=== PATIENT | female | born 1950 | race Caucasian/White ===

== ENCOUNTER 2016-11-29 17:29 | Emergency (ER) | payer MEDICAID ==
[~2016-11-29] VITALS: Ht 152.4 cm; Wt 45.5 kg
[2016-11-29 17:32] VITALS: Ht 152.4 cm; Wt 45.5 kg
[2016-11-30] MEDS ORDERED: ALBUTEROL/IPRATROPIUM (NEB) 3 ML AMP HHN PRN (07:00)
[2016-11-30] MEDS ORDERED: NACL 0.9% 3 ML SYG IV SCH (07:00)
[2016-11-30] MEDS ORDERED: ONDANSETRON 4 MG INJ IV PRN (07:00)
[2016-11-30] MEDS ORDERED: morphine 2 MG INJ IV PRN (07:00)
[2016-11-30] MEDS ORDERED: ACETAMINOPHEN 325 MG TAB PO PRN (07:00)
[2016-11-30] MEDS ORDERED: ASPIRIN 81 MG TAB PO SCH (09:00)
[2016-11-30] MEDS ORDERED: HEPARIN 5,000 UNIT/0.5 ML VIAL SC SCH (09:00)
--- NOTE | 2016-11-30 17:54 | RADRPT ---
Echocardiogram Report Patient Name: CASIMIOR HENDERSON Gender: Female Date: 1950 Study Date: 30-Nov-2016 Shrimp Packer: [facility] Location: [facility] Ref. Physician: JAMES HAMM Quality: Good Procedures: Transthoracic echocardiogram with complete 2D, M-Mode, and doppler examination. Indications: Congestive Heart Failure. 2D/M Mode Doppler Measurement Value Normal Ranges Measurement Value Normal Ranges LVIDd 2D 4.0 3.5 - 5.6 cm AV Peak Delfino 1.6 m/sec LVIDs 2D 2.7 2.1 - 4.1 cm AV Peak PG 10.4 mmHg LVPWd 2D 1.3 0.6 - 1.1 cm LVOT Peak Delfino 1.2 m/sec IVSd 2D 1.3 0.6 - 1.1 cm LVOT Peak PG 5.8 mmHg AoR Diam 2D 2.3 2.0 - 3.7 cm MV E Peak Delfino 1.4 m/sec EDV 2D 71.8 cm3 MV A Peak Delfino 1.2 m/sec ESV 2D 20.2 cm3 MV E/A 1.2 MV Decel Time 151 msec MV Decel Troup 9 MV E/A 1.2 TR Peak Delfino 3.3 m/sec TR Peak PG 46.5 mmHg Findings Left Ventricle: Normal left ventricular systolic function. Normal left ventricular cavity size. Mild concentric left ventricular hypertrophy. Ejection fraction is visually estimated at 65 %. Tissue Doppler/Mitral Doppler indices are consistent with pseudonormalization with mildly elevated left atrial pressure (Stage II diastolic dysfunction). Right Ventricle: Normal right ventricular size. Normal right ventricular systolic function. Left Atrium: There is moderate enlargement of left atrium. Right Atrium: There is moderate enlargement of right atrium. Mitral Valve: Mild mitral leaflet calcification. Mild to moderate mitral valve regurgitation. Aortic Valve: No significant aortic stenosis or insufficiency. Aortic valve not well visualized. Tricuspid Valve: Tricuspid valve not well visualized. Estimated peak PA systolic pressure 72 mmHg. There is mild to moderate tricuspid regurgitation. Pericardium: Normal pericardium with no significant pericardial effusion. Aorta: Normal aortic root. IVC: Normal size and normal respiratory collapse consistent with normal right atrial pressure. Conclusions 1.Normal left ventricular systolic function. Normal left ventricular cavity size. Mild concentric left ventricular hypertrophy. Ejection fraction is visually estimated at 65 %. Tissue Doppler/Mitral Doppler indices are consistent with pseudonormalization with mildly elevated left atrial pressure (Stage II diastolic dysfunction). 2.Mild to moderate mitral valve regurgitation (may be underestimated). 3.Mild to moderate tricuspid regurgitation (may be underestimated). 4.Pulmonary hypertension with estimated peak PA systolic pressure 72 mmHg based on RA pressure of 3 mmHg. Electronically Signed By: Cleveland Olson 30-Nov-2016 17:53:37 -0700 Patient Name: CASIMIRO HENDERSON Study Date: 30-Nov-2016 [id number]
== END 2016-11-29 22:21 | disposition left against medical advice (07) ==
LOC: E/R 17:29
DX: Z53.21 Procedure and treatment not carried out due to patient leaving prior to being seen by health care provider (principal)
CPT/HCPCS: J2270; J2405

== ENCOUNTER 2016-11-30 01:41 | Inpatient (IN) | payer MEDICAID ==
[2016-11-30] VITALS (12 sets, daily range): BP systolic 129–165; BP diastolic 65–81; PULSE 67–84; RESP 18; TEMP 98.2; Ht 147.3 cm; Wt 43.9 kg
[~2016-11-30] VITALS: Ht 147.3 cm; Wt 43.9 kg
[2016-11-30] MEDS ORDERED: ONDANSETRON 4 MG INJ IV STA (02:03)
--- NOTE | 2016-11-30 03:21 | RADRPT ---
PROCEDURE: Chest. CLINICAL INDICATION: Chest pain. TECHNIQUE: Single frontal view of the chest was obtained. COMPARISON: None. FINDINGS: There is a right-sided Perma-Cath extending to the SVC/RA junction. The cardiac silhouette is enlar ged. The aortic arch is calcified. There is no focal consolidation, vascular congestion or pleural effusion. There is no pneumothorax. IMPRESSION: No evidence for active pulmonary disease. Cardiomegaly and aortic atherosclerosis. .Benito Renae MD, Date Time Electronically viewed and signed by .Benito Renae MD, on 11/30/2016 03:21 .T/
[2016-11-30 03:32] LABS: ADD SCAN DIFF NO
[2016-11-30 03:51] LABS: INR 1.02; PARTIAL THROMBOPLASTIN TIME 32.3 Sec (25.0-35.0); PROTIME 13.4 Sec (12.2-14.2)
[2016-11-30 03:57] LABS: ALBUMIN 3.8 g/dl (3.3-4.9)
[2016-11-30 03:58] LABS: POTASSIUM 4.8 mmol/L (3.5-5.1)
[2016-11-30 04:00] LABS: ALBUMIN/GLOBULIN RATIO 1.08; BILIRUBIN,INDIRECT 0.1 mg/dl (0-1.1); BILIRUBIN,TOTAL 0.1 mg/dl (0.2-1.3); CREATININE 8.4 mg/dl (0.44-1.00); TOTAL PROTEIN 7.3 g/dl (6.1-8.1)
[2016-11-30 04:01] LABS: CALCIUM 8.8 mg/dl (8.4-10.2)
[2016-11-30 04:04] LABS: BASOPHIL # 0.1 10^3/ul (0.0-0.1); BASOPHILS % 0.7 % (0.0-2.0); EOSINOPHILS # 0.2 10^3/ul (0.0-0.5); EOSINOPHILS % 1.6 % (0.0-7.0); HEMATOCRIT 25.1 % (37.0-47.0); HEMOGLOBIN 8.4 g/dl (12.0-16.0); LYMPHOCYTES # 1.4 10^3/ul (0.8-2.9); LYMPHOCYTES % 10.6 % (15.0-51.0); MEAN CORPUSCULAR HEMOGLOBIN 29.6 pg (29.0-33.0); MEAN CORPUSCULAR HGB CONC 33.5 g/dl (32.0-37.0); MEAN CORPUSCULAR VOLUME 88.4 fl (82.0-101.0); MEAN PLATELET VOLUME 10.5 fl (7.4-10.4); MONOCYTE # 0.7 10^3/ul (0.3-0.9); MONOCYTES % 5.3 % (0.0-11.0); NEUTROPHIL # 10.4 10^3/ul (1.6-7.5); NEUTROPHILS % 81.3 % (39.0-77.0); PLATELET COUNT 337 10^3/UL (140-415); RED BLOOD COUNT 2.84 10^6/ul (4.20-5.40); RED CELL DISTRIBUTION WIDTH 14.8 % (11.5-14.5); WHITE BLOOD COUNT 12.8 10^3/ul (4.8-10.8)
[2016-11-30 04:13] LABS: TROPONIN-I 0.031 ng/ml (0.00-0.12)
[2016-11-30] MEDS: morphine 4 MG/ML VIAL IV PRN (09:49)
[2016-11-30] MEDS: ONDANSETRON 4 MG INJ IV PRN ×2 (09:50→17:35)
[2016-11-30] MEDS: hydrALAzine 20 MG INJ IV SCH ×3 (09:52→17:35)
--- NOTE | 2016-11-30 11:39 | HP ---
Date/Time of Note Date/Time of Note DATE: 11/30/16 TIME: 11:32 Assessment/Plan VTE Prophylaxis VTE Prophylaxis Intervention: SCD's Lines/Catheters IV Catheter Type (from Nrsg): Saline Lock Assessment/Plan Assessment/Plan IMPRESSION 1. Shortness of Breath 2. ESRD on HD 3. Hypertensive Urgency 4. Epigastric abd pain with vomiting PLAN - will obtain KUB to eval for etiology of abd pain and vomiting. additional imaging as needed - will provide anti-emetics - place on IV anti-hypertensive with adjustment as needed - Nephrology consult - will also obtain 2d-echo to w/u shortness of breath HPI/ROS Admit Date/Time Admit Date/Time Hx of Present Illness Patient is a 66 yo female with hx of ESRD on HD, HTN, DM who presented to ER c/ o SOB and abd pain. Symptom has been going on since yesterday. Abd pain is localized in epigastric area with associated NBNB vomiting. In ER, Na, 133, WBC 12.8 BUN 64, Cr 8.4, BNP 34,000. SBP was documented to be as high as 192/75. CXR showed Cardiomegaly PMH/Family/Social Social History Smoking Status: Never smoker Exam/Review of Systems Vital Signs Vitals Vital Signs Date Time Temp Pulse Resp B/P Pulse Ox O2 Delivery O2 Flow Rate FiO2 11/30/16 10:23 98.2 72 18 149/62 99 Room Air Exam Constitutional: alert, oriented, well developed Eyes: EOMI, PERRL Neck: non-tender, supple Respiratory: clear to auscultation, normal air movement Cardiovascular: nl pulses, regular rate and rhythm Gastrointestinal: soft, tender Extremities: normal pulses Labs Result Diagram: 11/30/16 0230 11/30/16 0230 Medications Medications Current Medications Ondansetron HCl (Zofran Inj) 4 mg Q4H PRN IV NAUSEA AND/OR VOMITING Last administered on 11/30/16 09:50; Admin Dose 4 MG; Start 11/30/16 at 09:30 Hydralazine HCl (Apresoline) 10 mg Q6 IV Last administered on 11/30/16 09:52; Admin Dose 10 MG; Start 11/30/16 at 09:30 Morphine Sulfate (morphine) 3 mg Q4H PRN IV PAIN LEVEL 4-6 Last administered on 11/30/16 09:49; Admin Dose 3 MG; Start 11/30/16 at 09:30 Metoclopramide HCl (Reglan) 10 mg Q6 PRN IV nausea and vomiting; Start at 11:30; Status UNV JAMES HAMM MD Nov 30, 2016 11:38
--- NOTE | 2016-11-30 14:11 | RADRPT ---
PROCEDURE: XR Abdomen 1 View. CLINICAL INDICATION: Abdominal pain and vomiting TECHNIQUE: AP abdomen x-ray. COMPARISON: None. FINDINGS: Large amount of formed stool is seen throughout the colon. No dilated loops of small bowel are obse rved. No organomegaly is identified. A few phleboliths are noted in the pelvis. Degenerative change s are seen in the hips and spine. IMPRESSION: Large amount of formed stool throughout the colon suggesting constipation. If further characterization of the abdomen is needed CT should be considered. RPTAT: AA .Alcon Estes MD, MD Date Time Electronically viewed and signed by .Alcon Estes MD, on 11/30/2016 14:11 .P/
--- NOTE | 2016-11-30 18:16 | CONS ---
DATE OF ADMISSION: 11/30/2016 DATE OF CONSULTATION: 11/30/2016 REASON FOR CONSULTATION: End-stage renal disease, volume overload. REQUESTING PHYSICIAN: Dr. Napoleon Villareal HISTORY OF PRESENT ILLNESS: This is a 66-year-old female with a past medical history of end-stage r enal disease, on Tuesday, Tuesday, Tuesday with access of a right chest PermCath. The patient's las t hemodialysis was last Tuesday. History of hypertension, diabetes, who presents to the emergency ro om with complaints of shortness of breath, abdominal pain. The patient said her symptoms have been ongoing for the past 24 hours. As a result, without improvement in her symptoms, she came to the em ergency room. Upon arrival, the patient had a chest x-ray which showed findings of cardiomegaly, no active pulmonary disease. The patient had abdominal x-rays which showed a large amount of formed s tool. In the emergency room, the patient was noted to be in hypertensive urgency with systolic pres sures greater than 170. The patient was given hydralazine IV x1. The patient was also noted to be short of breath. There have been no reports of hemoptysis, hematemesis or hematochezia. PAST MEDICAL HISTORY: As stated above, history of hypertension, end-stage renal disease, dyslipidem ia, diabetes. PAST SURGICAL HISTORY: Status post PermCath placement. ALLERGIES: NO KNOWN DRUG ALLERGIES. FAMILY HISTORY: Noncontributory. SOCIAL HISTORY: Does not drink, smoke or do drugs. MEDICATIONS: The patient's medications have been reviewed. REVIEW OF SYSTEMS: A 14-point review of systems was conducted. Pertinent positives stated in the H PI, otherwise negative. PHYSICAL EXAMINATION: VITAL SIGNS: Blood pressure 151/60, respirations 18, pulse 69, temperature 98.2. HEENT: Head is normocephalic. NECK: Supple. HEART: Regular rate. LUNGS: Show diminished breath sounds at the bases. ABDOMEN: Soft, nontender to palpation. No rebound or guarding. EXTREMITIES: Negative for clubbing, cyanosis. No edema. DERMATOLOGIC: No rashes. MUSCULOSKELETAL: No joint effusions. NEUROLOGIC: No change in exam. LABORATORY DATA: Shows a sodium 133, potassium 4.8, chloride 94, BUN 64, creatinine 8.40. White co unt 12.8, hemoglobin 8.4, hematocrit 25.1, platelet count 337. IMAGING STUDIES: As stated in the HPI. ASSESSMENT AND PLAN: This is a 66-year-old female who presents with: 1. End-stage renal disease. The patient is on dialysis Tuesday, Tuesday, Tuesday with access of a right chest PermCath. The patient's last hemodialysis was Tuesday. Plan is for urgent hemodialysis today. We will dialyze for 3 hours, 3 K bath, calcium 2.5, ultrafiltrate as tolerated. Also, antic ipate dialysis tomorrow for solute clearance and volume removal. 2. Hypertensive urgency in part due to increased intravascular volume. Plan is for dialysis for ul trafiltration. We will continue current blood pressure regimen. 3. Hyponatremia secondary to end-stage renal disease. The patient will be dialyzed on a 140 sodium bath. 4. Volume overload. As stated above, the patient will have ultrafiltration dialysis. We will mini aicha IV fluids, her total fluids no more than 1 to 2 liters. 5. Anemia of chronic kidney disease. We will monitor hemoglobin and hematocrit levels. We will gi ve Epogen. 6. Mineral bone disorder. Monitor calcium and phosphorus levels. Defer phosphate binders at this time. 7. Abdominal pain, nausea, vomiting. Etiology is unclear. The patient's KUB shows no acute findin gs. May consider CT scan of abdomen and pelvis. We will monitor closely. Thank you, Dr. Villareal, for this interesting consultation. It will be a pleasure to follow the patient with you throughout the hospital course. Dictated By: STEFFI BRIGGS/KLAUDIA Conf#: [id number] DID#: [id number]
[2016-12-01] VITALS (21 sets, daily range): BP systolic 96–166; BP diastolic 54–72; PULSE 67–79; RESP 16–18
[2016-12-01] MEDS: hydrALAzine 20 MG INJ IV SCH ×5 (06:30→23:22)
[2016-12-01] MEDS: ONDANSETRON 4 MG INJ IV PRN ×4 (06:35→23:22)
[2016-12-01 08:06] LABS: IRON 92 ug/dl (35-150)
[2016-12-01 08:15] LABS: TOTAL IRON BINDING CAPACITY 221 ug/dl (241-421)
--- NOTE | 2016-12-01 10:25 | PN ---
DATE: 12/01/2016 SUBJECTIVE: The patient had hemodialysis yesterday which was complicated. I spoke with dialysis marietta se 2 to 3 times adjusting dialysis flow rates and blood flow rates, no other events noted. The denis ent is feeling improved this morning less short of breath. OBJECTIVE: VITAL SIGNS: Blood pressure is 150/67, respiration 17, pulse 72, temperature 98.2. HEENT: Head is normocephalic. NECK: Supple. HEART: Regular rate. LUNGS: Show diminished breath sounds at the base. ABDOMEN: Soft, nontender to palpation without rebound or guarding. EXTREMITIES: Negative for clubbing, cyanosis. No edema. DERMATOLOGIC: No rashes. MUSCULOSKELETAL: No joint effusions. NEUROLOGIC: No change in exam. MEDICATIONS: The patient's medications have been reviewed. LABORATORY DATA: Has been reviewed. No new labs. ASSESSMENT AND PLAN: 1. End-stage renal disease. The patient had hemodialysis yesterday. Plan again for dialysis today for 3 hours, 3 K bath, calcium 2.5. 2. Hypertensive urgency secondary to increased intravascular volume. The patient clinically improv ing. Continue ultrafiltration dialysis. Continue current blood pressure regimen. 3. Hyponatremia secondary to end-stage renal disease. Continue dialysis 140 sodium bath. 4. Volume overload. The patient has dialyzed 3 liters. another 3 liters of ultrafiltration today. 5. Anemia of chronic disease. Continue to monitor H and H levels. Continue Epogen. 6. Mineral bone disorder. Continue to monitor calcium and phosphorus levels. 7. Abdominal pain, nausea, vomiting, improving. Continue to monitor. Dictated By: STEFFI BRIGGS/KLAUDIA Conf#: [id number] DID#: [id number]
[2016-12-01] MEDS: morphine 4 MG/ML VIAL IV PRN (12:01)
[2016-12-01] MEDS ORDERED: NA PHOSPHATE/BIPHOS 133 ML ENEMA PR ONE (14:30)
[2016-12-01] MEDS ORDERED: DEXTROSE 50% 50 ML SYRINGE IV PRN ×2 (15:00)
[2016-12-01] MEDS ORDERED: GLUCAGON 1 MG INJ IM PRN (15:00)
[2016-12-01] MEDS ORDERED: GLUCOSE GEL 15 GRAM TUBE PO PRN ×2 (15:00)
[2016-12-01] MEDS ORDERED: GLUCOSE GEL 15 GRAM TUBE BUCCAL PRN (15:00)
[2016-12-01 16:46] LABS: CHOL/HDL RATIO 2.9 RATIO
[2016-12-01] MEDS: FAMOTIDINE 20 MG TAB PO SCH (17:52)
[2016-12-01] MEDS: DOCUSATE SODIUM 100 MG CAP PO SCH ×2 (17:52→20:12)
[2016-12-01] MEDS: HEPARIN 5,000 UNIT/0.5 ML VIAL SC SCH ×2 (18:06→20:14)
[2016-12-01] MEDS: INSULIN ASPART [NOVOLOG] 3 ML PEN SC SCH ×2 (18:11→20:13)
[2016-12-01 19:54] LABS: ADD SCAN DIFF NO
[2016-12-01 19:57] LABS: BASOPHIL # 0.1 10^3/ul (0.0-0.1); BASOPHILS % 1.1 % (0.0-2.0); EOSINOPHILS # 0.1 10^3/ul (0.0-0.5); EOSINOPHILS % 0.8 % (0.0-7.0); HEMATOCRIT 27.8 % (37.0-47.0); HEMOGLOBIN 9.3 g/dl (12.0-16.0); LYMPHOCYTES # 1.1 10^3/ul (0.8-2.9); LYMPHOCYTES % 14.7 % (15.0-51.0); MEAN CORPUSCULAR HEMOGLOBIN 30.3 pg (29.0-33.0); MEAN CORPUSCULAR HGB CONC 33.5 g/dl (32.0-37.0); MEAN CORPUSCULAR VOLUME 90.6 fl (82.0-101.0); MEAN PLATELET VOLUME 9.8 fl (7.4-10.4); MONOCYTE # 0.5 10^3/ul (0.3-0.9); NEUTROPHIL # 5.8 10^3/ul (1.6-7.5); NEUTROPHILS % 75.9 % (39.0-77.0); PLATELET COUNT 343 10^3/UL (140-415); RED BLOOD COUNT 3.07 10^6/ul (4.20-5.40); RED CELL DISTRIBUTION WIDTH 14.9 % (11.5-14.5); WHITE BLOOD COUNT 7.6 10^3/ul (4.8-10.8)
[2016-12-01 20:16] LABS: CALCIUM 8.4 mg/dl (8.4-10.2); CREATININE 2.73 mg/dl (0.44-1.00); POTASSIUM 3.9 mmol/L (3.5-5.1)
[2016-12-02] VITALS (13 sets, daily range): BP systolic 139–174; BP diastolic 61–79; PULSE 66–75; RESP 16–18
[2016-12-02] MEDS: ACCU-CHEK XX SCH (01:44)
[2016-12-02] MEDS: morphine 2 MG INJ IV PRN ×2 (05:04→19:51)
[2016-12-02] MEDS: METOCLOPRAMIDE 10 MG INJ IV PRN ×2 (05:05→19:52)
[2016-12-02] MEDS: hydrALAzine 20 MG INJ IV SCH ×3 (05:05→17:26)
[2016-12-02] MEDS: INSULIN ASPART [NOVOLOG] 3 ML PEN SC SCH ×4 (08:00→20:03)
[2016-12-02] MEDS: DOCUSATE SODIUM 100 MG CAP PO SCH ×2 (08:24→19:52)
[2016-12-02] MEDS: FAMOTIDINE 20 MG TAB PO SCH (08:24)
[2016-12-02] MEDS: HEPARIN 5,000 UNIT/0.5 ML VIAL SC SCH ×2 (08:24→19:53)
--- NOTE | 2016-12-02 08:54 | PN ---
DATE: 12/01/2016 SUBJECTIVE: The patient received dialysis yesterday and getting it today. Had some mild nausea, vo miting symptoms this morning, otherwise no acute events overnight. OBJECTIVE: VITAL SIGNS: Stable. Blood pressure systolic is 151 to 166 over 67 to 72 diastolic. GENERAL: The patient lying in bed, answering questions appropriately. No acute distress. HEENT: Pupils equal, round, reactive to light. Extraocular muscles intact. NECK: Supple, no thyromegaly. LUNGS: Clear to auscultation bilaterally. CARDIOVASCULAR: S1, S2 heard. No rubs or gallops. ABDOMEN: Soft, nontender, nondistended. Normal bowel sounds. No rebound or guarding. MUSCULOSKELETAL: No lower extremity edema bilaterally. NEUROLOGIC: No focal deficits. LABORATORIES: There is no new CBC or basic metabolic panel from this morning. The KUB showed large amount of formed stool throughout the colon suggesting constipation. Chest x-ray: No evidence of active pulmonary disease. ASSESSMENT AND PLAN: This is a 66-year-old female with history of end-stage renal disease on dialys is, hypertension, diabetes, who presented with shortness of breath and abdominal pain. 1. Shortness of breath secondary most likely fluid overload. The patient received dialysis yesterd ay. She will get dialysis again today. Follow up renal recommendations. Follow up labs in the [facility]. Follow up echocardiogram results as well. 2. Hypertensive urgency, possibly secondary to increased intravascular volume. The blood pressure is in the high normal range now. Continue current blood pressure medicines. Dialysis per renal rec ommendations. 3. Type 2 diabetes. Follow up A1c levels and put her on sliding scale insulin. 4. History of hypertension. See #2. 5. Epigastric abdominal pain. Again most likely secondary to #1. There is also a large amount of stool/constipation, so will put her on Colace and also consider Fleet enema as well. 6. Gastrointestinal prophylaxis. Add PPI. 7. Deep venous thrombosis prophylaxis. Heparin subQ. Dictated By: BEATRICE ADAN/KLAUDIA Conf#: [id number] DID#: [id number]
[2016-12-02] MEDS ORDERED: EPOETIN 10000 UNITS/1 ML INJ (ESRD) SC SCH (10:30)
--- NOTE | 2016-12-02 10:40 | PN ---
DATE: 12/02/2016 SUBJECTIVE: The patient is stable, no acute events overnight. The patient had hemodialysis yesterd ay, tolerated it well. OBJECTIVE: VITAL SIGNS: Blood pressure is 157/70, respirations 18, pulse 72, temperature 98.1. HEENT: Head is normocephalic. NECK: Supple. HEART: Regular rate. LUNGS: Show diminished breath sounds at the bases. ABDOMEN: Soft, nontender to palpation. No rebound or guarding. EXTREMITIES: Negative for clubbing, cyanosis. No edema. DERMATOLOGIC: No rashes. MUSCULOSKELETAL: No joint effusions. NEUROLOGIC: No change. MEDICATIONS: The patient's medications have been reviewed. LABORATORY DATA: Shows a sodium 134, potassium 3.9, BUN 10, creatinine 2.73. White count 7.6, hemo globin 9.3, hematocrit 27.8, platelet count is 343. ASSESSMENT AND PLAN: 1. End-stage renal disease. The patient is on dialysis Tuesday, Tuesday, Tuesday. Plan for dialys is tomorrow for 3 hours, 3 K bath, calcium 2.5. 2. Hypertensive urgency in part due to increased intravascular volume. The patient clinically impr oving. Continue ultrafiltration dialysis. Continue current blood pressure regimen. 3. Hyponatremia, improved. Continue hemodialysis on a 140 sodium bath. 4. Volume overload, improving. Continue ultrafiltration dialysis. 5. Anemia. Continue to monitor hemoglobin and hematocrit levels. We will give Epogen as needed. 6. Mineral bone disorder. Continue to monitor calcium and phosphorus levels. 7. Diabetes. Continue Accu-Cheks and insulin sliding scale. 8. Abdominal pain secondary to constipation. Continue current bowel regimen. Dictated By: STEFFI BRIGGS/KLAUDIA Conf#: [id number] DID#: [id number]
[2016-12-02] MEDS: ONDANSETRON 4 MG INJ IV PRN ×2 (10:43→16:41)
--- NOTE | 2016-12-02 13:16 | CONS ---
DATE OF ADMISSION: 12/01/2016 DATE OF CONSULTATION: 12/02/2016 PALLIATIVE CARE CONSULTATION HISTORY OF PRESENT ILLNESS: This is a palliative consultation on this 66-year-old female who was ad mitted to [facility] with increased shortness of breath and chest pain. She states that she has back pain and chest pain which has been ongoing. It is chronic. Denies any extreme s hortness of breath associated with onset of the pain. Character of the pain is a gnawing type of di scomfort. It does radiate into her back. There is no past history of opioid use or abuse. The pain has been alleviated here with p.r.n. doses of morphine at 2 mg IV q.4h. There is no radiation asso ciated with the pain except for as per above. The patient does not have a history of chronic pain s yndrome prior to this hospitalization or prior to the current complaints. No distant past medical h istory of chronic pain disorders. There is no recent history of surgeries associated with the onset of her pain. Denies any extreme shortness breath, hemoptysis, dizziness, diplopia or disorientatio n. She states that she started hemodialysis approximately 2 months ago and she is going 3 times per week. In the emergency room the patient was found to be in hypertensive urgency also, was treated at that time and admitted, started off on antihypertensive medications. Nephrology consultation was called. Workup is currently underway for the underlying etiology of this pleuritic type of chest d iscomfort. The patient rates her pain as 4/10 in the epigastrium and upper back. The pain does not change upon movement. Nothing exacerbates the pain, including coughing or tactile stimulation. The frequency of her pain is continuous. There are no precipitating factors. The patient was not takin g any pain control medications as an outpatient. It does not affect her sleeping or appetite. MEDICATIONS: Please refer to reconciliation sheets. ALLERGIES: NO KNOWN DRUG ALLERGIES. MAJOR MEDICAL PROBLEMS IN THE PAST: As per history of present illness and a history of hypertension , type 2 diabetes, end-stage renal disease, on hemodialysis. The patient was found to have profound fluid and electrolyte abnormalities on admission, with a BNP of 34,000 also. SOCIAL HISTORY: Nonsmoker, nondrinker, nondrug-user. FAMILY HISTORY: Noncontributory. She states that she has 6 children who are all alive and in good health. Mother and father are alive, in good health also. REVIEW OF SYSTEMS: A 12-point review of systems was unremarkable, except as per history of present illness. PHYSICAL EXAMINATION: GENERAL: Shows a well-nourished, well-developed female, who appears older than her stated age. VITAL SIGNS: Blood pressure 147/67, pulse 70 and regular, respirations of 18, temperature 97.9 degr ees, 97% saturation on room air. HEENT: She is normocephalic and atraumatic. Anicteric, acyanotic on examination. CHEST: Shows bilateral distant breath sounds throughout both lung betancur. COR: S1, S2, without S3, S4, murmur, gallop, rub. Normal rate, normal rhythm on examination. NEUROLOGIC EXAMINATION: She is oriented x3. Cranial nerves II through XII are grossly intact. Mot or and sensory findings are grossly within normal limits. LABORATORY: White blood cell count of 7.6, hemoglobin 9.3, hematocrit 27.8, MCV of 90.6, platelet c ount of 343,000. Chemistries: Serum sodium 134, potassium 3.9, chloride 99, bicarbonate 28, BUN of 10, creatinine 2.73, blood sugar of 189. IMAGING STUDIES: Chest x-ray done on 11/30/2016, no evidence of active pulmonary disease. Cardiome jl with aortic arteriosclerosis. ASSESSMENT AND PLAN: This is a 66-year-old lady with 2 medical problems: 1. Pain syndrome, which does sound pleuritic in origin. Options are to treat it with nonsteroidal anti-inflammatory medications, which I suggest with her underlying end-stage renal disease. Hopeful ly this will just burnout. I do not recommend increasing her current pain control medications, but because of her underlying renal disease, I will stop the morphine and switch her over to Dilaudid at this time, as morphine is metabolized through the kidneys Dilaudid less though. 2. The second issue to address with the patient is that she has end-stage renal disease, multiple c omorbid medical problems were increasing complications associated with the above, including , r ecurrent hospitalizations for congestive heart failure, chest discomfort, arteriosclerotic circulato ry vascular related problems. I will address a POLST form with the patient gingerly. There are no other family members who make decisions on her behalf. Issues with palliative care would involve ps ychosocial issues in this lady which I do not believe she is making her own decisions and is sound of mind. Palliative care performance scale is 60%. Goals have not been discussed with the pa ashwini yet. I will try and establish some level of trust first. Pain management issue has been refe rred to ready family issues and decision makers are definitely patient goals of care will be to cont inue with higher level of care and, once again, to discuss ongoing level of care, which I believe is appropriate at the time to do all, especially with this lady who is only 66 years old, but it is ap propriate to discuss a POLST form with her and possibly an advance directive also to be determined, depending upon how the patient responds to my eye opening of the conversation about level of care. We will follow closely while in-house. Dictated By: FAZAL COLLINS MD, LP/KLAUDIA Conf#: [id number] DID#: [id number]
--- NOTE | 2016-12-02 14:00 | PN ---
Date/Time of Note Date/Time of Note DATE: 12/02/16 TIME: 13:57 Assessment/Plan VTE Prophylaxis VTE Prophylaxis Intervention: heparin Lines/Catheters IV C[facility] Type (from [facility] Saline Lock Urinary Cath still in place: No Assessment/Plan Chief Complaint/Hosp Course ASSESSMENT AND PLAN: 66-year-old female with history of end-stage renal disease on dialysis, hypertension, diabetes, who presented with shortness of breath and abdominal pain. 1. Shortness of breath - secondary most likely fluid overload. The patient received dialysis yesterday. - for dialysis tomorrow. Follow up renal recommendations. - Follow up labs in the morning. Follow up echocardiogram results as well. 2. Hypertensive urgency- possibly secondary to increased intravascular volume. The blood pressure is improved now. - Continue current blood pressure medicines. - Dialysis per renal recommendations. 3. Type 2 diabetes. Follow up A1c levels, sliding scale insulin. 4. History of hypertension. See #2. 5. Epigastric abdominal pain. Again most likely secondary to #1. There is also a large amount of stool/constipation, so will put her on Colace and also consider Fleet enema as well. 6. Gastrointestinal prophylaxis. Add PPI. 7. Deep venous thrombosis prophylaxis. Heparin subQ. 8. abd pain - f/u palliative care team rec's. Problems: Subjective 24 Hr Interval Summary Free Text/Dictation Pt had HD yesterday, seen by renal and palliative team as well. Exam/Review of Systems Vital Signs Vitals Vital Signs Date Time Temp Pulse Resp B/P Pulse Ox O2 Delivery O2 Flow Rate FiO2 12/02/16 13:54 2.0 12/02/16 12:09 68 12/02/16 11:20 97.9 18 147/67 97 11/30/16 20:15 Room Air Intake and Output 12/01/16 12/01/16 12/02/16 15:00 23:00 07:00 Intake Total 500 ml Output Total 3400 ml Balance -2900 ml Exam GENERAL: The patient lying in bed, answering questions appropriately. No acute distress. HEENT: Pupils equal, round, reactive to light. Extraocular muscles intact. NECK: Supple, no thyromegaly. LUNGS: Clear to auscultation bilaterally. CARDIOVASCULAR: S1, S2 heard. No rubs or gallops. ABDOMEN: Soft, nontender, nondistended. Normal bowel sounds. No rebound or guarding. MUSCULOSKELETAL: No lower extremity edema bilaterally. NEUROLOGIC: No focal deficits. Results Result Diagram: 12/01/16193212/01/161932 Results 24 hrs Laboratory Tests Test 12/01/16 15:22 12/01/16 18:02 12/01/16 19:33 12/01/16 20:11 Hemoglobin A1c 6.4 H Triglycerides Level 125 Cholesterol Level 160 LDL Cholesterol, Calculated 80 HDL Cholesterol 55 Cholesterol/HDL Ratio 2.9 Bedside Glucose 170 199 White Blood Count 7.6 # Red Blood Count 3.07 L Hemoglobin 9.3 L Hematocrit 27.8 L Mean Corpuscular Volume 90.6 Mean Corpuscular Hemoglobin 30.3 Mean Corpuscular Hemoglobin Concent 33.5 Red Cell Distribution Width 14.9 H Platelet Count 343 Mean Platelet Volume 9.8 Neutrophils % 75.9 Lymphocytes % 14.7 L Monocytes % 7.0 Eosinophils % 0.8 Basophils % 1.1 Nucleated Red Blood Cells % 0.0 Neutrophils # 5.8 Lymphocytes # 1.1 Monocytes # 0.5 Eosinophils # 0.1 Basophils # 0.1 Nucleated Red Blood Cells # 0.0 Sodium Level 134 L Potassium Level 3.9 Chloride Level 99 Carbon Dioxide Level 28 Anion Gap 11 # Blood Urea Nitrogen 10 # Creatinine 2.73 #H Glucose Level 189 Calcium Level 8.4 Test 12/02/16 08:19 12/02/16 12:32 Bedside Glucose 114 193 Medications Medications Current Medications Ondansetron HCl (Zofran Inj) 4 mg Q4H PRN IV NAUSEA AND/OR VOMITING Last administered on 12/02/16 10:43; Admin Dose 4 MG; Start 11/30/16 at 09:30 Hydralazine HCl (Apresoline) 10 mg Q6 IV Last administered on 12/02/16 05:05; Admin Dose 10 MG; Start 11/30/16 at 09:30 Metoclopramide HCl (Reglan) 5 mg Q6 PRN IV nausea and vomiting Last administered on 12/02/16 05:05; Admin Dose 5 MG; Start 11/30/16 at 11:30 Docusate Sodium (Colace) 200 mg BID PO Last administered on 12/02/16 08:24; Admin Dose 200 MG; Start 12/01/16 at 14:30 Famotidine (Pepcid) 20 mg DAILY PO Last administered on 12/02/16 08:24; Admin Dose 20 MG; Start 12/01/16 at 14:30 Heparin Sodium (Porcine) (Heparin (5000 Units/0.5 ml)) 5,000 unit BID SC Last administered on 12/01/16 20:14; Admin Dose 5,000 UNIT; Start 12/01/16 at 14:30 Acetaminophen (Tylenol Tab) 650 mg Q6H PRN PO PAIN AND OR ELEVATED TEMP; Start 12/01/16 at 14:30 Morphine Sulfate (morphine) 2 mg Q4H PRN IV PAIN LEVEL 4-6 Last administered on 12/02/16 05:04; Admin Dose 2 MG; Start 12/01/16 at 17:30 Diagnostic Test (Pha) (Accu-Chek) 1 ea 02 XX ; Start 12/02/16 at 02:00 Miscellaneous Information 1 ea NOTE XX ; Start 12/01/16 at 15:00 Glucose (Glutose) 15 gm Q15M PRN PO DECREASED GLUCOSE; Start 12/01/16 at 15:00 Glucose (Glutose) 22.5 gm Q15M PRN PO DECREASED GLUCOSE; Start 12/01/16 at 15: 00 Dextrose (D50w Syringe) 25 ml Q15M PRN IV DECREASED GLUCOSE; Start 12/01/16 at 15:00 Dextrose (D50w Syringe) 50 ml Q15M PRN IV DECREASED GLUCOSE; Start 12/01/16 at 15:00 Glucagon (Glucagen) 1 mg Q15M PRN IM DECREASED GLUCOSE; Start 12/01/16 at 15:00 Glucose (Glutose) 15 gm Q15M PRN BUCCAL DECREASED GLUCOSE; Start 12/01/16 at 15 :00 BEATRICE VALERIO Dec 02, 2016 14:00
[2016-12-02 14:16] LABS: ADD SCAN DIFF NO; BASOPHIL # 0.1 10^3/ul (0.0-0.1); BASOPHILS % 1.3 % (0.0-2.0); EOSINOPHILS # 0.1 10^3/ul (0.0-0.5); EOSINOPHILS % 0.7 % (0.0-7.0); HEMATOCRIT 30.6 % (37.0-47.0); HEMOGLOBIN 10.4 g/dl (12.0-16.0); LYMPHOCYTES # 1.7 10^3/ul (0.8-2.9); LYMPHOCYTES % 22.6 % (15.0-51.0); MEAN CORPUSCULAR HEMOGLOBIN 30.5 pg (29.0-33.0); MEAN CORPUSCULAR VOLUME 89.7 fl (82.0-101.0); MEAN PLATELET VOLUME 10.1 fl (7.4-10.4); MONOCYTE # 0.4 10^3/ul (0.3-0.9); MONOCYTES % 5.7 % (0.0-11.0); NEUTROPHIL # 5.2 10^3/ul (1.6-7.5); PLATELET COUNT 394 10^3/UL (140-415); RED BLOOD COUNT 3.41 10^6/ul (4.20-5.40); RED CELL DISTRIBUTION WIDTH 14.6 % (11.5-14.5); WHITE BLOOD COUNT 7.6 10^3/ul (4.8-10.8)
[2016-12-02 14:24] LABS: POTASSIUM 3.9 mmol/L (3.5-5.1)
[2016-12-02 14:26] LABS: CREATININE 4.71 mg/dl (0.44-1.00)
[2016-12-02 14:27] LABS: CALCIUM 9.1 mg/dl (8.4-10.2); PHOSPHORUS 4.1 mg/dl (2.5-4.9)
[2016-12-02 14:28] LABS: MAGNESIUM 2.1 mg/dl (1.7-2.5)
[2016-12-03] VITALS (20 sets, daily range): BP systolic 88–198; BP diastolic 47–82; PULSE 67–78; RESP 16–20
[2016-12-03] MEDS: ONDANSETRON 4 MG INJ IV PRN (00:42)
[2016-12-03] MEDS: hydrALAzine 20 MG INJ IV SCH ×4 (00:42→17:07)
[2016-12-03] MEDS: ACCU-CHEK XX SCH (02:00)
[2016-12-03] MEDS: INSULIN ASPART [NOVOLOG] 3 ML PEN SC SCH ×4 (07:55→21:00)
[2016-12-03] MEDS: DOCUSATE SODIUM 100 MG CAP PO SCH ×2 (08:28→21:00)
[2016-12-03] MEDS: FAMOTIDINE 20 MG TAB PO SCH (08:28)
[2016-12-03] MEDS: HEPARIN 5,000 UNIT/0.5 ML VIAL SC SCH ×2 (08:29→21:00)
--- NOTE | 2016-12-03 11:46 | PN ---
DATE: 12/03/2016 SUBJECTIVE: The patient is stable, no acute events overnight. No fevers, chills, nausea, vomiting. OBJECTIVE: VITAL SIGNS: Blood pressure 198/82, respiration 16, pulse 75, temperature 98.3. HEENT: Head is normocephalic. NECK: Supple. HEART: Regular rate. LUNGS: Show diminished breath sounds at the base. ABDOMEN: Soft, nontender to palpation. No rebound or guarding. EXTREMITIES: Negative for clubbing, cyanosis, no edema. DERMATOLOGIC: No rashes. MUSCULOSKELETAL: No joint effusions. NEUROLOGIC: No change in exam. LABORATORY DATA: Has been reviewed. No new labs this morning. ASSESSMENT AND PLAN: 1. End-stage renal disease. The patient is on dialysis Tuesday, Tuesday, Tuesday. Plan for dialys is today for 3 hours, 3K bath, calcium 2.5. 2. Hypertension. The plan is to continue current blood pressure regimen. Continue hemodialysis. 3. Hyponatremia, improved. 4. Volume overload. Continue ultrafiltration dialysis. 5. Anemia. Continue to monitor hemoglobin and hematocrit levels. Continue Epogen as needed. 6. Mineral bone disorder. Continue to monitor calcium and phosphorus levels. 7. Diabetes. Continue Accu-Cheks and insulin sliding scale. Dictated By: STEFFI BRIGGS/KLAUDIA Conf#: [id number] DID#: [id number]
--- NOTE | 2016-12-03 12:11 | PDOCDIS ---
Discharge Instructions CONDITION Patient Condition: Stable HOME CARE INSTRUCTIONS: Special Diet: renal diet ACTIVITY: Activity Restrictions: Slowly Increase Activity FOLLOW UP/APPOINTMENTS Appointments Please take your medications, see your doctor in the clinic in 1 week. BEATRICE VALERIO Dec 03, 2016 12:10
--- NOTE | 2016-12-03 14:29 | DS ---
DATE OF ADMISSION: 12/01/2016 DATE OF DISCHARGE: 12/03/2016 HOSPITAL COURSE: This is a 66-year-old female originally admitted on 11/30/2016, being discharged h ome on 12/03/2016. The patient was initially admitted on 11/30/2014, she was having shortness of br eath and abdominal pain. She was found with an elevated BNP level of 34,000 on admission, signs of fluid overload. She was admitted to telemetry floor, seen by renal team and pain management team jesus bautista this hospital stay. She underwent dialysis sessions and her shortness breath symptoms improved . She also was found with hypertensive urgency thought to be secondary to increased intravascular v olume. But again, after she got dialysis and blood pressure medicines, her blood pressure improved as well. Over the course of her hospital stay, her vital signs were stable. She had less shortness breath, less abdominal pain symptoms. She was able to ambulate and tolerate a p.o. diet. Her A1c was found to be 6.4 and her sugars were stabilized with sliding scale insulin and medical management . She is going to get dialysis later today and if she has no further symptoms, she will be discharg ed home later today in improved condition. She will continue her home medicines that she takes for her type 2 diabetes, her end-stage renal dis ease and also for hypertension at home. She has a full list of these medicines at home. She will c ontinue dialysis as an outpatient Tuesday, Tuesday and Tuesday as well. FINAL DIAGNOSES: 1. Abdominal pain and shortness of breath secondary to fluid overload, status post hemodialysis ses blanca by renal team. 2. Hypertensive urgency secondary to increased intravascular volume, now improved with dialysis and blood pressure medications. 3. Essential hypertension. 4. Hyponatremia, resolving. 5. Anemia of chronic disease. 6. End-stage renal disease, on dialysis. 7. Mineral bone disease. 8. Type 2 diabetes. A1c of 6.4. Time spent discharging the patient 45 minutes. Dictated By: BEATRICE BATES Conf#: [id number] DID#: [id number]
[2016-12-03] MEDS: ACETAMINOPHEN 325 MG TAB PO PRN (17:19)
[2016-12-04] VITALS: BP_SYST 173; BP_SYST 188; BP_DIAS 72; PULSE 70; RESP 18; RESP 20
[2016-12-04] MEDS: ACETAMINOPHEN 325 MG TAB PO PRN (00:18)
[2016-12-04] MEDS: hydrALAzine 20 MG INJ IV SCH ×2 (00:19→06:23)
[2016-12-04] MEDS: DOCUSATE SODIUM 100 MG CAP PO SCH (00:19)
[2016-12-04 00:23] VITALS: PULSE 65
[2016-12-04] MEDS: ACCU-CHEK XX SCH (02:00)
[2016-12-04 04:00] VITALS: BP 160/72; PULSE 67; RESP 18; RESP 20
[2016-12-04 04:42] VITALS: PULSE 65
[2016-12-04 07:39] VITALS: BP 138/64; RESP 19
[2016-12-04] MEDS: INSULIN ASPART [NOVOLOG] 3 ML PEN SC SCH (08:00)
[2016-12-04] MEDS: FAMOTIDINE 20 MG TAB PO SCH (08:43)
[2016-12-04] MEDS: HEPARIN 5,000 UNIT/0.5 ML VIAL SC SCH (08:48)
[2016-12-04 09:00] VITALS: PULSE 70
--- NOTE | 2016-12-04 09:58 | DS ---
Date/Time of Note Date/Time of Note DATE: 12/04/16 TIME: 09:57 Discharge Summary Admission/Discharge Info Admit Date/Time Dec 01, 2016 at 15:12 Discharge Date/Time Final Diagnosis 1. Abdominal pain and shortness of breath secondary to fluid overload, status post hemodialysis session by renal team. 2. Hypertensive urgency secondary to increased intravascular volume, now improved with dialysis and blood pressure medications. 3. Essential hypertension. 4. Hyponatremia, resolving. 5. Anemia of chronic disease. 6. End-stage renal disease, on dialysis. 7. Mineral bone disease. 8. Type 2 diabetes. A1c of 6.4. Time spent discharging the patient 45 minutes. Hx of Present Illness Patient is a 66 yo female with hx of ESRD on HD, HTN, DM who presented to ER c/ o SOB and abd pain. Symptom has been going on since yesterday. Abd pain is localized in epigastric area with associated NBNB vomiting. In ER, Na, 133, WBC 12.8 BUN 64, Cr 8.4, BNP 34,000. SBP was documented to be as high as 192/75. CXR showed Cardiomegaly Hospital Course DATE OF ADMISSION: 12/01/2016 DATE OF DISCHARGE: 12/04/2016 HOSPITAL COURSE: This is a 66-year-old female originally admitted on 11/30/2016 , being discharged home on 12/04/2016. The patient was initially admitted on , she was having shortness of breath and abdominal pain. She was found with an elevated BNP level of 34,000 on admission, signs of fluid overload. She was admitted to telemetry floor, seen by renal team and pain management team during this hospital stay. She underwent dialysis sessions and her shortness breath symptoms improved. She also was found with hypertensive urgency thought to be secondary to increased intravascular volume. But again, after she got dialysis and blood pressure medicines, her blood pressure improved as well. Over the course of her hospital stay, her vital signs were stable. She had less shortness breath, less abdominal pain symptoms. She was able to ambulate and tolerate a p.o. diet. Her A1c was found to be 6.4 and her sugars were stabilized with sliding scale insulin and medical management. She will be discharged home later today in improved condition. She will continue her home medicines that she takes for her type 2 diabetes, her end-stage renal disease and also for hypertension at home. She has a full list of these medicines at home. She will continue dialysis as an outpatient Tuesday, Tuesday and Tuesday as well. Home Meds Unable to Obtain Active Prescriptions or Reported Meds Pending Labs Laboratory Tests Test 12/03/16 12:17 12/03/16 17:10 12/04/16 07:24 Bedside Glucose 203mg/dL (70-220) 181mg/dL (70-220) 124mg/dL (70-220) BEATRICE VALERIO Dec 04, 2016 09:58
--- NOTE | 2016-12-04 11:18 | PN ---
Date/Time of Note Date/Time of Note DATE: 12/04/16 TIME: :17 Assessment/Plan VTE Prophylaxis VTE Prophylaxis Intervention: other Lines/Catheters [facility]from [facility]): PERMACATH Urinary Cath still in place: No Assessment/Plan Assessment/Plan 1. End-stage renal disease. The patient is on dialysis Tuesday, Tuesday, Tuesday. Plan for dialysis as outpatient 2. Hypertension. The plan is to continue current blood pressure regimen. Continue hemodialysis. 3. Hyponatremia, improved. 4. Volume overload. Continue ultrafiltration dialysis. 5. Anemia. Continue to monitor hemoglobin and hematocrit levels. Continue Epogen as needed. 6. Mineral bone disorder. Continue to monitor calcium and phosphorus levels. 7. Diabetes. Continue Accu-Cheks and insulin sliding scale. Subjective 24 Hr Interval Summary Free Text/Dictation The patient is stable, no acute events overnight. No fevers, chills, nausea, vomiting. OBJECTIVE: HEENT: Head is normocephalic. NECK: Supple. HEART: Regular rate. LUNGS: Show diminished breath sounds at the base. ABDOMEN: Soft, nontender to palpation. No rebound or guarding. EXTREMITIES: Negative for clubbing, cyanosis, no edema. DERMATOLOGIC: No rashes. MUSCULOSKELETAL: No joint effusions. NEUROLOGIC: No change in exam. Exam/Review of Systems Vital Signs Vitals Vital Signs Date Time Temp Pulse Resp B/P Pulse Ox O2 Delivery O2 Flow Rate FiO2 12/04/16 09:00 70 12/04/16 08:00 2.0 12/04/16 07:39 98.5 19 138/64 97 12/04/16 04:00 Room Air Intake and Output 12/03/16 12/03/16 12/04/16 15:00 23:00 07:00 Intake Total 950 ml 240 ml Output Total 4000 ml Balance -3050 ml 240 ml Results Result Diagram: 12/02/16 1355 12/02/16 1345 Results 24 hrs Laboratory Tests Test 12/03/16 12:17 12/03/16 17:10 12/04/16 07:24 Bedside Glucose 203 181 124 Medications Medications Current Medications Ondansetron HCl (Zofran Inj) 4 mg Q4H PRN IV NAUSEA AND/OR VOMITING Last administered on 12/03/16t 00:42; Admin Dose 4 MG; Start 11/30/16 at 09:30 Hydralazine HCl (Apresoline) 10 mg Q6 IV Last administered on 12/04/16 06:23; Admin Dose 10 MG; Start 11/30/16 at 09:30 Metoclopramide HCl (Reglan) 5 mg Q6 PRN IV nausea and vomiting Last administered on 12/02/16 19:52; Admin Dose 5 MG; Start 11/30/16 at 11:30 Docusate Sodium (Colace) 200 mg BID PO Last administered on 12/04/16 00:19; Admin Dose 200 MG; Start 12/01/16 at 14:30 Famotidine (Pepcid) 20 mg DAILY PO Last administered on 12/04/16 08:43; Admin Dose 20 MG; Start 12/01/16 at 14:30 Heparin Sodium (Porcine) (Heparin (5000 Units/0.5 ml)) 5,000 unit BID SC Last administered on 12/04/16 08:48; Admin Dose 5,000 UNIT; Start 12/01/16 at 14:30 Acetaminophen (Tylenol Tab) 650 mg Q6H PRN PO PAIN AND OR ELEVATED TEMP Last administered on 12/04/16 00:18; Admin Dose 650 MG; Start 12/01/16 at 14:30 Morphine Sulfate (morphine) 2 mg Q4H PRN IV PAIN LEVEL 4-6 Last administered on 12/02/16 19:51; Admin Dose 2 MG; Start 12/01/16 at 17:30 Diagnostic Test (Pha) (Accu-Chek) 1 ea 02 XX ; Start 12/02/16 at 02:00 Miscellaneous Information 1 ea NOTE XX ; Start 12/01/16 at 15:00 Glucose (Glutose) 15 gm Q15M PRN PO DECREASED GLUCOSE; Start 12/01/16 at 15:00 Glucose (Glutose) 22.5 gm Q15M PRN PO DECREASED GLUCOSE; Start 12/01/16 at 15: 00 Dextrose (D50w Syringe) 25 ml Q15M PRN IV DECREASED GLUCOSE; Start 12/01/16 at 15:00 Dextrose (D50w Syringe) 50 ml Q15M PRN IV DECREASED GLUCOSE; Start 12/01/16 at 15:00 Glucagon (Glucagen) 1 mg Q15M PRN IM DECREASED GLUCOSE; Start 12/01/16 at 15:00 Glucose (Glutose) 15 gm Q15M PRN BUCCAL DECREASED GLUCOSE; Start 12/01/16 at 15 :00 SACHA SCHILLING DO Dec 04, 2016 11:18
== END 2016-12-04 10:53 | disposition home or self-care (01) | DRG 304 ==
LOC: E/R 01:41 → MS4 05:41 → OBSVTOIN 12-01 15:12
PROVIDERS: ADMIT Internal Medicine; ATTEND Internal Medicine
PROC: 5A1D60Z (ICD-10-PCS; principal; 2016-12-01)
DX: I16.0 Hypertensive urgency (principal); N18.6 End stage renal disease; E11.22 Type 2 diabetes mellitus with diabetic chronic kidney disease; E87.1 Hypo-osmolality and hyponatremia; E87.70 Fluid overload, unspecified; I12.0 Hypertensive chronic kidney disease with stage 5 chronic kidney disease or end stage renal disease; Z99.2 Dependence on renal dialysis; R10.13 Epigastric pain; R11.10 Vomiting, unspecified; D63.1 Anemia in chronic kidney disease; K59.00 Constipation, unspecified
CPT/HCPCS: 71010; 74000; 80048; 80053; 80061; 82728; 82962; 83036; 83540; 83735; 83880; 84100; 84484; 85025; 85610; 85730; 90935; 93005; 99217; G0378; J0360; J0886; J1644; J1815; J2270; J2405; J2765